=== PATIENT | male | born 1970 | race Caucasian/White ===

== ENCOUNTER 2021-06-26 08:44 | Outpatient (CLI) | payer OTHER, SELFPAY ==
--- NOTE | ~2021-06-26 | XR_ITS ---
XR chest 2V DATE: 06/26/2021 09:00 INDICATION: Shortness of breath. Nonsmoker. TECHNIQUE: PA and lateral views COMPARISON: None FINDINGS: Normal heart size. No hilar or mediastinal enlargement. No pulmonary infiltrate or consolidation, pleural effusion or pulmonary vascular congestion or pneumo thorax. Included skeletal structures are unremarkable other than mild thoracolumbar scoliosis. IMPRESSION: No active cardiopulmonary disease Reviewed, dictated and finalized at location A. F DEVELOPMENT COORDINATOR RN
== END 2021-06-26 08:45 | disposition home or self-care (01) ==
PROVIDERS: PCP Physician Assistant Medical; Visit Provider Physician Assistant Medical
DX: R06.02 Shortness of breath (principal)
CPT/HCPCS: 71046

== ENCOUNTER → 2021-09-06 09:33 | Outpatient (REF) | payer OTHER, SELFPAY | LOC: ANHLAB 09:33 | PROVIDERS: PCP Physician Assistant Medical; Visit Provider Nurse Practitioner | DX: C44.41 Basal cell carcinoma of skin of scalp and neck (principal) | CPT/HCPCS: 88305 ==

== ENCOUNTER 2022-01-28 11:29 | Outpatient (NON) | payer OTHER, SELFPAY | END 2022-01-28 11:30 | disposition home or self-care (01) | LOC: ANHLAB 11:29 | PROVIDERS: PCP Physician Assistant Medical; Visit Provider Nurse Practitioner | DX: C44.319 Basal cell carcinoma of skin of other parts of face (principal) | CPT/HCPCS: 88305; 88331 ==

== ENCOUNTER 2024-02-06 03:01 | Day surgery (SDC) | payer OTHER, SELFPAY ==
[2024-01-15 10:34] VITALS: BMI 44.9
[2024-02-06 06:40] VITALS: BP 135/82; PULSE 77; RESP 18; TEMP 36.1; O2SAT 97
[2024-02-06] MEDS: LACTATED RINGERS 1,000 ML 150 ML IV CONT (06:55)
--- NOTE | 2024-02-06 07:35 | WPDANESEPPF ---
Anes - Initial Pre Proc Eval Procedure: Operation Date: 02/06/24 08:00 Proposed Procedures p Screening Colonoscopy - Micah Coe MD Date/Time: 02/06/24 07:35 Surgeon: Micah Coe MD Pre Op Diagnosis: neoplasm screening Patient Data Age: 53 Gender: M Height: 1.75 m Weight: 146.7 kg Last Vital Signs Temp 36.1 C L 02/06/24 06:40 Pulse 77 02/06/24 06:40 Resp 18 02/06/24 06:40 BP 135/82 02/06/24 06:40 Pulse Ox 97 02/06/24 06:40 O2 Del Method Room Air 02/06/24 06:40 Allergies Allergy/AdvReac Type Severity Reaction Status Date / Time No Known Allergies Allergy Verified 02/06/24 06:29 Home Medications Medication Instructions Recorded Confirmed Type No Home Medications 01/15/24 02/06/24 History Patient hx anesthesia problems: none Family hx anesthesia problems: none Results Review: All pre-operative results and documents have been reviewed as part of the pre-operative evaluation. [facility] Past Medical History Medical History Adult BMI 45.0-49.9 kg/sq m Body mass index (BMI) of 40.1 to 44.9 in adult Family History Family History Mother Hypertension Family history of malignant neoplasm of breast in first degree relative Breast cancer COVID-19 Father Malignant neoplasm of prostate COVID-19 Sibling COVID-19 Social History Social History Smoking status: Never smoker Second hand tobacco smoke exposure: Yes Alcohol intake: current Drinks per week: 4 Substance use: never Substance use type: does not use Living arrangements: with family Occupation/Education: occupation Additional occupation/education comments: [employer] Gender identity (if verbalized by the patient): Male Spiritual care concerns: No Anes - Eval Final PreProcedure Day of Procedure 02/06/24 07:35 Patient weight: morbidly obese Heart: regular rate and rhythm Lungs: clear to auscultation Airway: Mallampati scale class II Neurological: alert and oriented Last oral intake: >/= 8 hours ASA classification: III Emergent: no Anesthetic plan: proceed Anesthesia type and monitoring: general GIVS and standard monitoring Results Review: All pre-operative results and documents have been reviewed as part of the pre-operative evaluation. Informed Consent: The patient's anesthetic plan and its attendant risks and benefits were discussed with the patient/family/POA. Questions were solicited and answers provided to the satisfaction of the patient/family/POA.
--- NOTE | 2024-02-06 07:42 | P.HP_ITS ---
History of Present Illness History of Present Illness Consent: Risks, benefits, and alternatives have been discussed and questions answered. Patient agrees to proceed with procedure. Chief complaint: neoplasm screening Narrative: Maurice Flores is a 53 year old male here for screening colonoscopy Review of Systems Review of Systems: All systems reviewed & are unremarkable except as noted in HPI and below PMFSH Past Medical History Medical History Adult BMI 45.0-49.9 kg/sq m Body mass index (BMI) of 40.1 to 44.9 in adult Family History Family History Mother Hypertension Family history of malignant neoplasm of breast in first degree relative Breast cancer COVID-19 Father Malignant neoplasm of prostate COVID-19 Sibling COVID-19 Social History Social History Smoking status: Never smoker Second hand tobacco smoke exposure: Yes Alcohol intake: current Drinks per week: 4 Substance use: never Substance use type: does not use Living arrangements: with family Occupation/Education: occupation Additional occupation/education comments: [employer] Gender identity (if verbalized by the patient): Male Spiritual care concerns: No Meds Home Medications and Allergies Home Medications Medication Instructions Recorded Confirmed Type No Home Medications 01/15/24 02/06/24 History Allergies Allergy/AdvReac Type Severity Reaction Status Date / Time No Known Allergies Allergy Verified 02/06/24 06:29 Vital Signs Vital Signs - 24 hr 02/06/24 06:40 Temperature 97 F L Pulse Rate 77 Respiratory Rate 18 Blood Pressure 135/82 Pulse Oximetry 97 Oxygen Delivery Room Air Exam Const: General: comfortable and no acute distress HENMT: Face/Nose/Sinus: Normal nares present Eyes: General: appearance normal, both eyes and all related structures Neck: Neck: no JVD Resp: Auscultation: clear to auscultation bilaterally Cardio: Rate: regular rate Rhythm: regular rhythm GI: Inspection: non-distended GI Palp: Yes Soft to palpation Skin: General skin exam: normal color Neuro: General: gait normal Speech: normal speech Extrem: General: normal to inspection Psych: Mental Status: mental status grossly normal Assessment and Plan Assessment and plan (1) Screening for colon cancer: Code(s): Z12.11 - Encounter for screening for malignant neoplasm of colon Status: Acute Assessment and Plan: colonoscopy
[2024-02-06 08:01] VITALS: BP 147/97; PULSE 74; RESP 24; O2SAT 95
[2024-02-06 08:11] VITALS: BP 129/92; PULSE 75; RESP 27; O2SAT 99
[2024-02-06 08:21] VITALS: BP 129/92; PULSE 71; RESP 20; O2SAT 100
== END 2024-02-06 08:29 | disposition home or self-care (01) ==
PROVIDERS: PCP Family Medicine; Referring Provider Physician Assistant Medical; Visit Provider Internal Medicine Gastroenterology
PROC: 0DJD8ZZ Inspection of Lower Intestinal Tract, Via Natural or Artificial Opening Endoscopic (ICD-10-PCS; CPT 45378; principal; 2024-02-06 08:00)
DX: Z12.11 Encounter for screening for malignant neoplasm of colon (principal); D12.5 Benign neoplasm of sigmoid colon
CPT/HCPCS: 45385; 88305; J2704; J7120